=== PATIENT | female | born 1940 | race Two or more races ===

== ENCOUNTER 2021-05-04 09:31 | Emergency (ER) | payer OTHER, MEDICAID ==
[~2021-05-04] VITALS: Ht 154.9 cm; Wt 52.2 kg
[~2021-05-04 09:31] MED LIST: LEVO250T19 PO; LISI40TA11 PO; OMEP20CA74 OR; PREG75CA PO; RIV15T PO; TAMIF30 PO
[2021-05-04] MEDS ORDERED: cefTRIAXone SOD 1,000 MG VL ONE (14:43)
[2021-05-04] MEDS ORDERED: cefTRIAXone SOD 1,000 MG VL IM ONE (14:45)
[2021-05-04 14:54] VITALS: BP 180/84
== END 2021-05-04 15:02 | disposition home or self-care (01) ==
LOC: ER 09:31
DX: J18.9 Pneumonia, unspecified organism (principal); J02.9 Acute pharyngitis, unspecified; E11.9 Type 2 diabetes mellitus without complications; E78.5 Hyperlipidemia, unspecified; I10 Essential (primary) hypertension; Z20.822 Contact with and (suspected) exposure to COVID-19
CPT/HCPCS: 36415; 71046; 87426; 96372; 99284; J0696

== ENCOUNTER 2023-03-30 12:39 | Inpatient (IN) | payer OTHER, MEDICAID ==
[~2023-03-30] VITALS: Ht 149.9 cm; Wt 45.6 kg
[~2023-03-30 12:39] MED LIST changes: -LISI40TA11 PO; +LISI40TA16 PO
[2023-03-30 13:44] LABS: Basophils # (auto) 0.1 10 ^3/uL (0-0.2); Basophils % (auto) 0.4 % (0.0-2.0); Eosinophils # (auto) 0 10 ^3/uL (0-0.8); Eosinophils % (auto) 0.1 % (0.0-7.0); Hematocrit 26.5 % (36.0-46.0); Hemoglobin 8.8 g/dL (12.2-16.2); Lymphocytes # (auto) 4.4 10 ^3/uL (0.4-5.4); Lymphocytes % (auto) 20.7 % (10.0-50.0); Mean Corpuscular Hemoglobin 30.5 pg (28.0-32.0); Mean Corpuscular Hgb Conc. 33.2 g/dL (32.0-36.0); Mean Corpuscular Volume 91.9 fL (80.0-100.0); Monocytes # (auto) 1.1 10 ^3/uL (0-1.3); Monocytes % (auto) 5.2 % (0.0-12.0); Neutrophils # (auto) 15.5 10 ^3/uL (1.6-8.6); Neutrophils % (auto) 73.6 % (37.0-80.0); Nucleated Red Blood Cells % 0.1 %; Red Blood Cells 2.88 10^6/uL (4.0-5.20); Red Cell Distribution Width 14.4 % (11.8-14.3); White Blood Cell 21.1 10^3/uL (4.4-10.8)
[2023-03-30 14:00] LABS: Alkaline Phosphatase 110 U/L (46-116); Anion Gap 8 (5-15); BUN/Creatinine Ratio 15.5 (10.0-20.0); Blood Urea Nitrogen 24 mg/dL (9-23); Calcium 8.7 mg/dL (8.7-10.4); Carbon Dioxide 21 mmol/L (20-30); Chloride 104 mmol/L (98-107); Glucose 196 mg/dL (74-106); Magnesium 2.2 mg/dL (1.6-2.6); Potassium 3.8 mmol/L (3.5-5.1); Sodium 133 mmol/L (136-145)
[2023-03-30 14:01] LABS: Albumin 4.1 g/dL (3.2-4.8); Aspartate Aminotransferase 22 U/L (13-40); Bilirubin, Total 1.1 mg/dL (0.2-1.0); Total Protein 7.8 g/dL (5.7-8.2)
[2023-03-30 14:08] LABS: Alanine Aminotransferase 9 U/L (7-40)
[2023-03-30] MEDS ORDERED: IPRATROPIUM BROM 0.5 MG/2.5ML INH SOL HHN ONE (15:15)
[2023-03-30] MEDS ORDERED: cefTRIAXone 1GM/50ML D5W 50 ML IV ONE (15:15)
[2023-03-30] MEDS ORDERED: AZITHROMYCIN 500MG/ 250ML 250 ML IV ONE (15:15)
[2023-03-30] MEDS ORDERED: ALBUTEROL SULF 2.5 MG/0.5ML(0.5%) NEB SOLN HHN ONE (15:15)
[2023-03-30] MEDS ORDERED: DexAMETHasone SOD PHOS 10MG/1ML VIAL INJ IV ONE (15:15)
[2023-03-30] MEDS ORDERED: SODIUM CHLORIDE 0.9% 1,000 ML IV ONE (15:15)
[2023-03-30] MEDS ORDERED: ALBUTEROL MEDNEB 2.5 mg/3ml NEB ONE (15:17)
[2023-03-30 15:22] VITALS: PULSE 68
[2023-03-30] MEDS ORDERED: NITROGLYCERIN 0.4 MG SL TAB SL PRN (15:30)
[2023-03-30] MEDS ORDERED: MORPHINE SULFATE INJ 2 MG/ml SYRG IV PRN ×2 (15:30)
[2023-03-30] MEDS ORDERED: ONDANSETRON HCL 4 MG/2 ML VIAL IV PRN (15:30)
[2023-03-30] MEDS ORDERED: HYDROcodone-ACET 5/325MG TAB PO PRN (15:30)
[2023-03-30] MEDS: SODIUM CHLORIDE 0.9% 1,000 ML IV SCH ×2 (15:58→21:46)
[2023-03-30 19:30] VITALS: PULSE 70; RESP 22; O2SAT 98
[2023-03-30 20:04] LABS: COVID19 ANTIGEN SOFIA FIA NEGATIVE (NEGATIVE)
[2023-03-30 20:05] LABS: Rapid Influenza A Negative (Negative); Rapid Influenza B Negative (Negative)
[2023-03-30] MEDS: HEPARIN SODIUM (PORCINE) 5000 UNITS/ML 1ML VIAL SC SCH (22:11)
[2023-03-30] MEDS ORDERED: DEXTROSE (50%) 50ML SYRG IV PRN (22:30)
[2023-03-31] VITALS (8 sets, daily range): BP systolic 140–161; BP diastolic 65–71; PULSE 72–90; RESP 16–23; TEMP 97.4–97.8; O2SAT 97–100
[2023-03-31] MEDS: hydrALAZINE HCL 20 MG/ML VL IV PRN (02:09)
[2023-03-31 05:53] LABS: Basophils # (auto) 0 10 ^3/uL (0-0.2); Basophils % (auto) 0.1 % (0.0-2.0); Eosinophils # (auto) 0 10 ^3/uL (0-0.8); Hemoglobin 7.8 g/dL (12.2-16.2); Monocytes # (auto) 0.2 10 ^3/uL (0-1.3)
[2023-03-31 05:55] LABS: Lymphocytes # (auto) 1.3 10 ^3/uL (0.4-5.4); Lymphocytes % (auto) 9.2 % (10.0-50.0); Mean Corpuscular Hemoglobin 30.9 pg (28.0-32.0); Mean Corpuscular Hgb Conc. 35.3 g/dL (32.0-36.0); Mean Corpuscular Volume 87.7 fL (80.0-100.0); Monocytes % (auto) 1.1 % (0.0-12.0); Neutrophils # (auto) 12.6 10 ^3/uL (1.6-8.6); Neutrophils % (auto) 89.6 % (37.0-80.0); Nucleated Red Blood Cells % 0.1 %; Red Blood Cells 2.51 10^6/uL (4.0-5.20); Red Cell Distribution Width 14.7 % (11.8-14.3); White Blood Cell 14.1 10^3/uL (4.4-10.8)
[2023-03-31 06:12] LABS: Anion Gap 11 (5-15); Carbon Dioxide 18 mmol/L (20-30); Chloride 107 mmol/L (98-107); Sodium 136 mmol/L (136-145)
[2023-03-31 06:13] LABS: Calcium 8.4 mg/dL (8.7-10.4)
[2023-03-31 06:18] LABS: BUN/Creatinine Ratio 20.6 (10.0-20.0); Blood Urea Nitrogen 29 mg/dL (9-23); Glucose 262 mg/dL (74-106)
[2023-03-31] MEDS: InsuLIN REG 1unit/0.01ml Soln (100units/ml) SC SCH ×3 (06:45→16:44)
[2023-03-31] MEDS: ACCU-CHEK COMFORT CURVE STRIP VI SCH ×3 (06:45→16:44)
[2023-03-31] MEDS: SODIUM CHLORIDE 0.9% 1,000 ML IV SCH ×2 (08:25→16:44)
[2023-03-31] MEDS: cefTRIAXone 1GM/50ML D5W 50 ML IV SCH (08:26)
[2023-03-31] MEDS: AZITHROMYCIN 500MG/ 250ML 250 ML IV SCH (09:20)
[2023-03-31] MEDS: HEPARIN SODIUM (PORCINE) 5000 UNITS/ML 1ML VIAL SC SCH ×2 (09:23→21:17)
[2023-03-31] MEDS: ALBUTEROL MEDNEB 2.5 mg/3ml NEB NEB SCH ×2 (18:00→22:29)
[2023-03-31] MEDS ORDERED: InsuLIN REG 1unit/0.01ml Soln (100units/ml) SC SCH (22:00)
[2023-04-01] VITALS (20 sets, daily range): BP systolic 122–146; BP diastolic 55–75; PULSE 85–106; RESP 16–22; TEMP 97.3–98.9; O2SAT 94–100
[2023-04-01] MEDS: SODIUM CHLORIDE 0.9% 1,000 ML IV SCH ×3 (00:50→17:30)
[2023-04-01] MEDS: ALBUTEROL MEDNEB 2.5 mg/3ml NEB NEB SCH ×6 (02:49→22:42)
[2023-04-01] MEDS: ACETAMINOPHEN 325 MG TAB PO PRN ×2 (07:13→23:21)
[2023-04-01 08:09] LABS: Basophils # (auto) 0 10 ^3/uL (0-0.2); Eosinophils # (auto) 0 10 ^3/uL (0-0.8)
[2023-04-01 08:11] LABS: Hematocrit 20.7 % (36.0-46.0); Lymphocytes % (auto) 5.2 % (10.0-50.0); Mean Corpuscular Hemoglobin 30.5 pg (28.0-32.0); Mean Corpuscular Hgb Conc. 33.6 g/dL (32.0-36.0); Mean Corpuscular Volume 90.6 fL (80.0-100.0); Monocytes # (auto) 0.9 10 ^3/uL (0-1.3); Monocytes % (auto) 4.7 % (0.0-12.0); Neutrophils % (auto) 90.1 % (37.0-80.0); Red Blood Cells 2.28 10^6/uL (4.0-5.20); Red Cell Distribution Width 14.7 % (11.8-14.3)
[2023-04-01 08:16] LABS: Anion Gap 9 (5-15); Carbon Dioxide 18 mmol/L (20-30); Chloride 111 mmol/L (98-107); Potassium 3.7 mmol/L (3.5-5.1); Sodium 138 mmol/L (136-145)
[2023-04-01 08:18] LABS: Calcium 8.1 mg/dL (8.5-10.1)
[2023-04-01 08:22] LABS: BUN/Creatinine Ratio 20.5 (10.0-20.0); Blood Urea Nitrogen 27 mg/dL (9-23); Glucose 147 mg/dL (74-106)
[2023-04-01] MEDS: HEPARIN SODIUM (PORCINE) 5000 UNITS/ML 1ML VIAL SC SCH ×2 (09:23→22:00)
[2023-04-01] MEDS: AZITHROMYCIN 500MG/ 250ML 250 ML IV SCH (09:23)
[2023-04-01] MEDS: cefTRIAXone 1GM/50ML D5W 50 ML IV SCH (09:24)
[2023-04-01] MEDS ORDERED: HEPARIN SODIUM (PORCINE) 5000 UNITS/ML 1ML VIAL ONE (20:59)
[2023-04-02] VITALS (18 sets, daily range): BP systolic 142–170; BP diastolic 73–98; PULSE 77–110; RESP 16–24; TEMP 97.8–99.1; O2SAT 92–99
[2023-04-02] MEDS: SODIUM CHLORIDE 0.9% 1,000 ML IV SCH (02:16)
[2023-04-02] MEDS: ALBUTEROL MEDNEB 2.5 mg/3ml NEB NEB SCH ×3 (06:25→14:00)
[2023-04-02] MEDS: AZITHROMYCIN 500MG/ 250ML 250 ML IV SCH (09:26)
[2023-04-02] MEDS: cefTRIAXone 1GM/50ML D5W 50 ML IV SCH (09:26)
[2023-04-02] MEDS: hydrALAZINE HCL 20 MG/ML VL IV PRN (09:27)
[2023-04-02] MEDS: HEPARIN SODIUM (PORCINE) 5000 UNITS/ML 1ML VIAL SC SCH ×2 (09:28→21:47)
[2023-04-02 14:42] LABS: Basophils # (auto) 0 10 ^3/uL (0-0.2); Basophils % (auto) 0.1 % (0.0-2.0); Eosinophils # (auto) 0 10 ^3/uL (0-0.8); Hemoglobin 8.4 g/dL (12.2-16.2); Monocytes # (auto) 0.8 10 ^3/uL (0-1.3); Neutrophils % (auto) 90.9 % (37.0-80.0)
[2023-04-02 14:44] LABS: Eosinophils % (auto) 0.1 % (0.0-7.0); Hematocrit 25.6 % (36.0-46.0); Lymphocytes # (auto) 0.6 10 ^3/uL (0.4-5.4); Lymphocytes % (auto) 3.8 % (10.0-50.0); Mean Corpuscular Hemoglobin 30.4 pg (28.0-32.0); Mean Corpuscular Hgb Conc. 32.7 g/dL (32.0-36.0); Mean Corpuscular Volume 93.1 fL (80.0-100.0); Monocytes % (auto) 5.1 % (0.0-12.0); Red Blood Cells 2.75 10^6/uL (4.0-5.20); Red Cell Distribution Width 15.1 % (11.8-14.3); White Blood Cell 16.5 10^3/uL (4.4-10.8)
[2023-04-02] MEDS: LEVALBUTEROL HCL 1.25 MG/3 ML NEB NEB SCH ×2 (18:35→22:12)
[2023-04-03] VITALS (16 sets, daily range): BP systolic 145–161; BP diastolic 86–91; PULSE 98–111; RESP 18–22; TEMP 97.5–98.9; O2SAT 91–100
[2023-04-03] MEDS: LEVALBUTEROL HCL 1.25 MG/3 ML NEB NEB SCH ×4 (02:18→14:40)
[2023-04-03] MEDS: cefTRIAXone 1GM/50ML D5W 50 ML IV SCH (09:13)
[2023-04-03] MEDS: AZITHROMYCIN 500MG/ 250ML 250 ML IV SCH (10:29)
[2023-04-03] MEDS: HEPARIN SODIUM (PORCINE) 5000 UNITS/ML 1ML VIAL SC SCH (10:30)
[2023-04-03] MEDS ORDERED: DOXY-448 PO (15:10)
[2023-04-03] MEDS ORDERED: ALBU108A5 IN (15:10)
[2023-04-03] MEDS ORDERED: PRED20TA2 PO (15:10)
[2023-04-03] MEDS ORDERED: BENZ100C97 PO (15:11)
[2023-04-03] MEDS ORDERED: LEVALBUTEROL HCL 1.25 MG/3 ML NEB NEB PRN (15:15)
[2023-04-03 15:31] LABS: Basophils # (auto) 0 10 ^3/uL (0-0.2); Basophils % (auto) 0.1 % (0.0-2.0); Eosinophils # (auto) 0 10 ^3/uL (0-0.8); Hematocrit 23.9 % (36.0-46.0); Hemoglobin 8.1 g/dL (12.2-16.2); Lymphocytes # (auto) 1.1 10 ^3/uL (0.4-5.4); Lymphocytes % (auto) 7.4 % (10.0-50.0); Mean Corpuscular Hemoglobin 30.5 pg (28.0-32.0); Mean Corpuscular Hgb Conc. 33.8 g/dL (32.0-36.0); Mean Corpuscular Volume 90.2 fL (80.0-100.0); Monocytes # (auto) 0.5 10 ^3/uL (0-1.3); Monocytes % (auto) 3.6 % (0.0-12.0); Neutrophils # (auto) 13.7 10 ^3/uL (1.6-8.6); Neutrophils % (auto) 88.9 % (37.0-80.0); Red Blood Cells 2.65 10^6/uL (4.0-5.20); White Blood Cell 15.4 10^3/uL (4.4-10.8)
[2023-04-03] MEDS ORDERED: DOXYCYCLINE 100 MG TAB/CAP PO SCH ×2 (22:00)
[2023-04-03] MEDS ORDERED: LEVALBUTEROL HCL 1.25 MG/3 ML NEB NEB SCH (22:00)
== END 2023-04-03 20:55 | disposition home health service (06) | DRG 178 ==
LOC: ER 12:39 → TELE 15:24 → TELE-WESTW 03-31 15:40
PROVIDERS: ADMIT Internal Medicine; ATTEND Internal Medicine
PROC: 30233N1 Transfusion of Nonautologous Red Blood Cells into Peripheral Vein, Percutaneous Approach (ICD-10-PCS; principal; 2023-04-01)
DX: J15.69 Pneumonia due to other Gram-negative bacteria (principal); J44.0 Chronic obstructive pulmonary disease with (acute) lower respiratory infection; N17.9 Acute kidney failure, unspecified; J44.1 Chronic obstructive pulmonary disease with (acute) exacerbation; J15.9 Unspecified bacterial pneumonia; E11.65 Type 2 diabetes mellitus with hyperglycemia; E78.5 Hyperlipidemia, unspecified; I10 Essential (primary) hypertension; Z20.822 Contact with and (suspected) exposure to COVID-19; D64.9 Anemia, unspecified; F03.90 Unspecified dementia, unspecified severity, without behavioral disturbance, psychotic disturbance, mood disturbance, and anxiety; Z88.8 Allergy status to other drugs, medicaments and biological substances
CPT/HCPCS: 36415; 71045; 71250; 80048; 80053; 82270; 82962; 83036; 83605; 83735; 85025; 86850; 86900; 86901; 86920; 87426; 87804; 93005; 94640; 96365; 96375; 97110; 97116; 97163; 97530; G0378; J0696; J1100; J1815

== ENCOUNTER 2023-09-08 01:46 | Emergency (ER) | payer OTHER, MEDICAID ==
[~2023-09-08] VITALS: Ht 149.9 cm; Wt 59.0 kg
[~2023-09-08 01:46] MED LIST changes: +ALBU108A5 IN; +AML5T PO; +ASPI-325 PO; +ATOR20TA50 PO; +AUG875T PO; +BENZ100C97 PO; +CARV-216 PO; +FURO1TAB31 PO; -LEVO250T19 PO; -LISI40TA16 PO; +POTA-215 PO; -RIV15T PO; -TAMIF30 PO
[2023-09-08 02:38] VITALS: PULSE 57; RESP 11; O2SAT 100
[2023-09-08 02:40] LABS: Chloride 99 mmol/L (98-107); Potassium 3.8 mmol/L (3.5-5.1)
[2023-09-08 02:41] LABS: Anion Gap 7 (5-15); Carbon Dioxide 26 mmol/L (20-30)
[2023-09-08 02:42] LABS: Calcium 8.5 mg/dL (8.7-10.4)
[2023-09-08 02:46] LABS: BUN/Creatinine Ratio 20.2 (10.0-20.0); Blood Urea Nitrogen 51 mg/dL (9-23); Glucose 180 mg/dL (74-106)
[2023-09-08 02:47] LABS: Basophils # (auto) 0.1 10 ^3/uL (0-0.2); Basophils % (auto) 0.7 % (0.0-2.0); Eosinophils # (auto) 0.6 10 ^3/uL (0-0.8); Eosinophils % (auto) 4.6 % (0.0-7.0); Hematocrit 35.3 % (36.0-46.0); Hemoglobin 11.7 g/dL (12.2-16.2); Lymphocytes # (auto) 3.2 10 ^3/uL (0.4-5.4); Lymphocytes % (auto) 25.9 % (10.0-50.0); Mean Corpuscular Hemoglobin 31.6 pg (28.0-32.0); Mean Corpuscular Hgb Conc. 33.1 g/dL (32.0-36.0); Mean Corpuscular Volume 95.4 fL (80.0-100.0); Monocytes # (auto) 0.9 10 ^3/uL (0-1.3); Monocytes % (auto) 7.2 % (0.0-12.0); Neutrophils # (auto) 7.7 10 ^3/uL (1.6-8.6); Neutrophils % (auto) 61.6 % (37.0-80.0); Nucleated Red Blood Cells % 0.2 %; Red Cell Distribution Width 18.6 % (11.8-14.3); White Blood Cell 12.5 10^3/uL (4.4-10.8)
[2023-09-08 03:18] LABS: Sodium 132 mmol/L (136-145)
[2023-09-08] MEDS: SODIUM CHLORIDE 0.9% 500 ML IV ONE (03:29)
[2023-09-08 04:04] LABS: Urine Bacteria FEW /hpf (None Seen); Urine Blood TRACE /uL (Negative); Urine Clarity Clear (Clear); Urine Color Straw (Yellow); Urine Protein, UAD 1+ (Negative); Urine Specific Gravity 1.005 (1.001-1.035); Urine Urobilinogen Normal (Negative); Urine WBC <1 /hpf (0 - 5)
[2023-09-08 07:58] VITALS: PULSE 60; RESP 16; O2SAT 97
[2023-09-08 08:37] VITALS: TEMP 98
[2023-09-08 09:21] VITALS: BP 163/53; PULSE 60; RESP 16; O2SAT 95
== END 2023-09-08 10:47 | disposition home or self-care (01) ==
LOC: EDBD 01:46 → ER 01:46
DX: E86.0 Dehydration (principal); R79.89 Other specified abnormal findings of blood chemistry; R53.81 Other malaise; I10 Essential (primary) hypertension; E11.9 Type 2 diabetes mellitus without complications; E78.5 Hyperlipidemia, unspecified; G30.9 Alzheimer's disease, unspecified; F02.80 Dementia in other diseases classified elsewhere, unspecified severity, without behavioral disturbance, psychotic disturbance, mood disturbance, and anxiety; Z79.899 Other long term (current) drug therapy
CPT/HCPCS: 36415; 51701; 71045; 80048; 81001; 83605; 83880; 84484; 85025; 87040; 93005